=== PATIENT | male | born 1985 | race Caucasian/White ===

== ENCOUNTER 2016-10-17 23:21 | Emergency (ER) | payer MEDICAID ==
[~2016-10-17] VITALS: Ht 157.5 cm; Wt 56.7 kg
[2016-10-18 01:35] VITALS: BP 130/88
[2016-10-18] MEDS ORDERED: BACITRACIN TOP OINT 1 UD PKG TOP ONE ×2 (01:59→02:15)
[2016-10-18] MEDS ORDERED: ACETAMINOPHEN 500 MG TAB PO ONE (02:00)
== END 2016-10-18 02:30 | disposition home or self-care (01) ==
LOC: ER 23:22
DX: S01.01XA Laceration without foreign body of scalp, initial encounter (principal); R55 Syncope and collapse; W22.8XXA Striking against or struck by other objects, initial encounter; Y93.89 Activity, other specified; Y99.8 Other external cause status; Y92.89 Other specified places as the place of occurrence of the external cause
CPT/HCPCS: 12002; 70450; 72125